=== PATIENT | male | born 1990 | race Caucasian/White ===

== ENCOUNTER 2021-06-03 04:54 | Emergency (ER) | payer BC ==
[~2021-06-03] VITALS: Ht 180.3 cm; Wt 71.7 kg
[2021-06-03 07:16] LABS: HEMATOCRIT 49.8 % (42.0-52.0); HEMOGLOBIN 16.8 gm/dL (14.0-18.0); MCH 29.1 pg (26.0-34.0); MCHC 33.8 g/dL (28.0-37.0); MCV 86.2 fL (80.0-100.0); MPV 7.2 fl. (7.2-11.1); NUCLEATED RBCS 0 /100WBC; PLATELET COUNT* 279 thou/uL (150-400); RBC 5.77 mil/uL (4.50-6.00); RDW-CV 12.8 % (10.5-14.5); WBC 13.3 thou/uL (4.0-11.0)
[2021-06-03 07:29] LABS: CALCIUM 8.9 mg/dL (8.5-10.1); POTASSIUM 3.8 mmol/L (3.5-5.1)
[2021-06-03 07:36] LABS: ALBUMIN 4.2 g/dL (3.4-5.0); TOTAL PROTEIN 7.8 g/dL (6.4-8.2)
[2021-06-03] MEDS ORDERED: PROTONIX40 M4 PO (08:14)
[2021-06-03 08:23] VITALS: BP 115/70
[2021-06-03 08:58] LABS: ABSOLUTE LYMPHOCYTES 1.1 thou/uL (0.8-5.3); ABSOLUTE MONOCYTES 0.3 thou/uL (0.0-1.2)
[2021-06-03 09:01] LABS: PLATELET ESTIMATE ADEQUATE
--- NOTE | 2021-06-04 11:06 | EKG ---
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
== END 2021-06-03 08:24 | disposition home or self-care (01) ==
LOC: M.ERS 04:54
PROVIDERS: Personal Emergency Response Attendant
DX: R10.11 Right upper quadrant pain (principal)